=== PATIENT | male | born 1970 | race Caucasian/White ===

== ENCOUNTER 2019-01-25 18:09 | Emergency (ER) | payer SELFPAY ==
[~2019-01-25] VITALS: Ht 182 cm; Wt 86.3 kg
--- NOTE | 2019-01-25 19:20 | ED EENT ---
History of Present Illness General Chief Complaint: Dental Problems/Pain Stated Complaint: TOOTHACHE Nursing Triage Note: Patient ambulatory to ER FT1 with complaint of generalized dental pain to all teeth. Patient states he just got out of [facility] and his teeth have been hurting for a while but has gotten worse x 2 days. Patient has extensive dental decay to all teeth. Patient is unable to hold still in chair. he states he did meth within the last several days. Allergies and Home Medications Allergies Coded Allergies: No Known Drug Allergies (Unverified , 01/25/19) Home Medications Amoxicillin 500 Mg Capsule, 500 MG PO TID Prescribed by: TUYET HERNANDEZ on 01/25/191924 Past Zxrucsr-Ugmapt-Xlrviy Hx Patient Social History Alcohol Use: Denies Use Recreational Drug Use: Yes Drug of Choice: meth Smoking Status: Current Everyday Smoker Type Used: Cigarettes 2nd Hand Smoke Exposure: Yes Recent Foreign Travel: No Contact w/Someone Who Travel: No Recent Infectious Disease Expo: No Recent Hopitalizations: No Physical Abuse: No Sexual Abuse: No Mistreated: No Fear: No Seasonal Allergies Seasonal Allergies: No Past Medical History Surgeries: Yes (left thumb ) Orthopedic Respiratory: No Cardiac: No Neurological: No Genitourinary: No Gastrointestinal: No Musculoskeletal: No Endocrine: No HEENT: No Cancer: No Psychosocial: No Physical Exam Vital Signs Vital Signs - First Documented 01/25/19 18:32 Temp 36.9 Pulse 124 Resp 20 B/P (MAP) 140/84 (102) Pulse Ox 98 O2 Delivery Room Air Height, Weight, BMI Height: '" Weight: lbs. oz. kg; 26.00 BMI Method: Progress/Results/Core Measures Results/Orders Vital Signs/I&O 01/25/19 01/25/19 18:32 19:32 Temp 36.9 36.9 Pulse 124 124 Resp 20 20 B/P (MAP) 140/84 (102) 140/84 (102) Pulse Ox 98 98 O2 Delivery Room Air Room Air Blood Pressure Mean: 102 POS Departure Departure-Patient Inst. Decision time for Depature: 19:15 Referrals: NO,LOCAL PHYSICIAN (PCP/Family) Primary Care Physician Scripts Amoxicillin (Amoxicillin) 500 Mg Capsule 500 MG PO TID, #21 CAP 0 Refills Prov: TUYET HERNANDEZ 01/25/19 TUYET HERNANDEZ Jan 25, 2019 19:20 POS
[2019-01-25] MEDS ORDERED: AMOX500C2 PO (19:25)
--- NOTE | 2019-01-25 19:29 | ED General ---
General Chief Complaint: Dental Problems/Pain Stated Complaint: TOOTHACHE Nursing Triage Note: Patient ambulatory to ER FT1 with complaint of generalized dental pain to all teeth. [facility] and his teeth have been hurting for a while but has gotten worse x 2 days. Patient has extensive dental decay to all teeth. Patient is unable to hold still in chair. he states he did meth within the last several days. Nursing Sepsis Screen: No Definite Risk Source of Information: Patient ([employer] STUDENT) History of Present Illness Date Seen by Provider: Jan 25, 2019 Time Seen by Provider: 19:10 Initial Comments This 48y/o male presents to the ED complaining of dental pain. Dental pain includes his entire oral cavity and has been ongoing for approximately 48hrs according to patient. He says that it hurts to eat and has not eaten much in the past day but does admit to smoking methamphetamine approximately 2 days ago. According to patient he has a history of dental issue that he has made worse with drug use. He admits to being an addict and is going through self-rehab. He recently moved to [place] from [place], does not have a physician and is unemployed. Timing/Duration: 1-2 Days ([employer] STUDENT) Allergies and Home Medications Allergies Coded Allergies: No Known Drug Allergies (Unverified , 01/25/19) Home Medications Amoxicillin 500 Mg Capsule, 500 MG PO TID Prescribed by: TUYET HERNANDEZ on 01/25/191924 Patient Home Medication List Home Medication List Reviewed: Yes (TUYET HERNANDEZ) Review of Systems Review of Systems Constitutional: No chills, No fever, No malaise, No weakness EENTM: dental problems, mouth pain, throat pain; No ear pain, No eye pain, No vision loss, No hoarseness Respiratory: no symptoms reported Cardiovascular: no symptoms reported Gastrointestinal: no symptoms reported Psychiatric/Neurological: Anxiety ([employer] STUDENT) All Other Systems Reviewed Negative Unless Noted: Yes (TUYET HERNANDEZ) Past Yklqoht-Lqbdnv-Mjcagp Hx Past Med/Social Hx: Reviewed Nursing Past Med/Soc Hx (TUYET HERNANDEZ) Patient Social History Alcohol Use: Denies Use Recreational Drug Use: Yes Drug of Choice: meth Smoking Status: Current Everyday Smoker Type Used: Cigarettes 2nd Hand Smoke Exposure: Yes Recent Foreign Travel: No Contact w/Someone Who Travel: No Recent Infectious Disease Expo: No Recent Hopitalizations: No Physical Abuse: No Sexual Abuse: No Mistreated: No Fear: No ([employer] STUDENT) Seasonal Allergies Seasonal Allergies: No ([employer] STUDENT) Past Medical History Surgeries: Yes (left thumb ) Orthopedic Respiratory: No Cardiac: No Neurological: No Genitourinary: No Gastrointestinal: No Musculoskeletal: No Endocrine: No HEENT: No Cancer: No Psychosocial: No ([employer] STUDENT) Physical Exam Vital Signs Vital Signs - First Documented 01/25/19 18:32 Temp 36.9 Pulse 124 Resp 20 B/P (MAP) 140/84 (102) Pulse Ox 98 O2 Delivery Room Air (TUYET HERNANDEZ) Vital Signs Capillary Refill : Less Than 3 Seconds ([employer] STUDENT) Height, Weight, BMI Height: '" Weight: lbs. oz. kg; 26.00 BMI Method: General Appearance: No Apparent Distress, WD/WN, Anxious HEENT: PERRL/EOMI Neck: Lymphadenopathy (R) Respiratory: Chest Non Tender, Lungs Clear, No Accessory Muscle Use, No Respiratory Distress, Wheezing Cardiovascular: No Edema, No Gallop, No JVD, No Murmur, Normal Peripheral Pulses, Tachycardia Gastrointestinal: Normal Bowel Sounds, No Organomegaly, No Pulsatile Mass, Non Tender, Soft Neurologic/Psychiatric: Alert, Oriented x3, No Motor/Sensory Deficits Skin: Normal Color, Warm/Dry ([employer] STUDENT) HEENT: Moist Mucous Membranes, Other (multiple dental caries, fractured teeth and missing teeth. Tenderness in bilat lower molars. ) (TUYET HERNANDEZ) Progress/Results/Core Measures Suspected Sepsis Recent Fever Within 48 Hours: No Infection Criteria Present: None New/Unexplained Altered Menta: No Sepsis Screen: No Definite Risk SIRS Temperature: Pulse: 124 Respiratory Rate: 20 Blood Pressure 140 /84 Mean: 102 ([employer] STUDENT) Results/Orders Vital Signs/I&O 01/25/19 01/25/19 18:32 19:32 Temp 36.9 36.9 Pulse 124 124 Resp 20 20 B/P (MAP) 140/84 (102) 140/84 (102) Pulse Ox 98 98 O2 Delivery Room Air Room Air (TUYET HERNANDEZ) Vital Signs/I&O Capillary Refill : Less Than 3 Seconds ([employer],MED STUDENT) Blood Pressure Mean: 102 POS Departure Impression Primary Impression: Dental caries Additional Impressions: Pain, dental Dental abscess Disposition: HOME, SELF-CARE Condition: Improved Departure-Patient Inst. Decision time for Depature: 19:30 (TUYET HERNANDEZ) Referrals: NO,LOCAL PHYSICIAN (PCP/Family) Primary Care Physician Add. Discharge Instructions: Take antibiotics as prescribed. Follow-up at [facility] on [address]. Use Orajel or other topical dental agent for pain. Rinse mouth with Listerine 3-4 times daily. You may alternate between Tylenol 650 mg and ibuprofen 600 mg every 4 hours for pain. Return to the emergency department for new, urgent health care problems. All discharge instructions reviewed with patient and/or family. Voiced understanding. Scripts Amoxicillin (Amoxicillin) 500 Mg Capsule 500 MG PO TID, #21 CAP 0 Refills Prov: TUYET HERNANDEZ 01/25/19 Patient seen and assessed by medical student and this provider, agreed with documentation and additional charting completed. Plan of care determined and agreed upon. (TUYET HERNANDEZ) [employer]UD[employer] Jan 25, 2019 19:29 TUYET FIGUEROA Jan 25, 2019 23:29 POS
[2019-01-25 19:32] VITALS: BP 140/84
== END 2019-01-25 19:35 | disposition home or self-care (01) ==
LOC: ER 18:12
DX: K02.9 Dental caries, unspecified (principal); K04.7 Periapical abscess without sinus; F17.210 Nicotine dependence, cigarettes, uncomplicated
CPT/HCPCS: 99282

== ENCOUNTER 2020-06-13 16:40 | Emergency (ER) | payer OTHER ==
[~2020-06-13] VITALS: Ht 182.8 cm; Wt 95.9 kg
[~2020-06-13 16:40] MED LIST: AMOX500C2 PO
[2020-06-13 16:45] VITALS: BP_SYST 134; BP_SYST 138; BP_DIAS 75; BP_DIAS 87
--- NOTE | 2020-06-13 16:55 | ED Syncope ---
History of Present Illness Date Seen by Provider: Jun 13, 2020 Time Seen by Provider: 16:47 Initial Comments 49-year-old male presents from the local [place] [facility] after having an episode of passing out. Patient states that he was feeling fine, felt like he had to have a bowel movement and went to the restroom. When he got up from the toilet he felt lightheaded and then fell down. Patient denied any blood in his stool, any recent illness, any chest pain, shortness of air or any palpitations or irregular heartbeat. Denies history of heart or lung problems. On no medication. Currently only complains of slight headache and some right elbow pain, otherwise feels fine. Allergies and Home Medications Allergies Coded Allergies: No Known Drug Allergies (Unverified , 01/25/19) Home Medications Amoxicillin 500 Mg Capsule, 500 MG PO TID Prescribed by: TUYET HERNANDEZ on 01/25/191924 Patient Home Medication List Home Medication List Reviewed: Yes Review of Systems Constitutional: No chills, No fever, No malaise, No weakness EENTM: no symptoms reported Respiratory: No cough, No short of breath Cardiovascular: No chest pain, No edema, No palpitations; syncope; No vascular heart diseas Gastrointestinal: No abdominal pain, No constipation, No diarrhea, No loss of appetite, No nausea, No vomiting Musculoskeletal: No back pain; joint pain (R elbow) Skin: see HPI (contusion R occiput); No lesions, No rash Psychiatric/Neurological: Denies Headache, Denies Numbness, Denies Paresthesia Past Hnwwnxp-Akrfkr-Aytpug Hx Past Med/Social Hx: Reviewed Nursing Past Med/Soc Hx Patient Social History Drug of Choice: meth Type Used: Cigarettes 2nd Hand Smoke Exposure: Yes Recent Hopitalizations: No Seasonal Allergies Seasonal Allergies: No Past Medical History Surgeries: Yes (left thumb ) Orthopedic Respiratory: No Cardiac: No Neurological: No Genitourinary: No Gastrointestinal: No Musculoskeletal: No Endocrine: No HEENT: No Cancer: No Psychosocial: No Physical Exam Vital Signs Capillary Refill : Height, Weight, BMI Height: '" Weight: lbs. oz. kg; 26.00 BMI Method: General Appearance: No Apparent Distress, WD/WN HEENT: PERRL/EOMI, TMs Normal, Normal ENT Inspection, Pharynx Normal, Other (contusion w superficial abrasion - R occiput) Neck: Normal Inspection, Non Tender, Supple Cardiovascular: Regular Rate, Rhythm, No Gallop, No JVD, Normal Peripheral Pulses Respiratory: Chest Non Tender, Lungs Clear, Normal Breath Sounds Back: Normal Inspection, No CVA Tenderness, No Vertebral Tenderness Extremities: Normal Capillary Refill, Normal Inspection, Non Tender, No Calf Tenderness Neurologic/Psychiatric: Alert, Oriented x3, No Motor/Sensory Deficits, Normal Mood/Affect Cranial Nerves: Normal Hearing, Normal Speech Coordination/Gait: Normal Finger to Nose, Normal Gait Motor/Sensory: No Motor Deficit, No Sensory Deficit, No Pronator Drift Skin: Normal Color, Warm/Dry Departure Impression Primary Impression: Vaso vagal episode Additional Impression: Head contusion Qualified Codes: S00.03XA - Contusion of scalp, initial encounter Disposition: 01 HOME, SELF-CARE Condition: Stable Departure-Patient Inst. Referrals: NO,LOCAL PHYSICIAN (PCP/Family) Primary Care Physician Patient Instructions: Vasovagal Response (DC), Minor Head Injury (DC) ELIZABETH SEGURA DO Jun 13, 2020 16:55
== END 2020-06-13 16:59 | disposition home or self-care (01) ==
LOC: EDUNIT# 16:40 → ER FS 16:42
DX: S00.83XA Contusion of other part of head, initial encounter (principal); R55 Syncope and collapse; M25.521 Pain in right elbow; Z77.22 Contact with and (suspected) exposure to environmental tobacco smoke (acute) (chronic); W01.0XXA Fall on same level from slipping, tripping and stumbling without subsequent striking against object, initial encounter; Y92.002 Bathroom of unspecified non-institutional (private) residence as the place of occurrence of the external cause
CPT/HCPCS: 99283